=== PATIENT | female | born 1990 | race Caucasian/White ===

== ENCOUNTER 2019-08-22 23:19 | Inpatient (IN) | payer BC ==
[~2019-08-22 23:19] MED LIST: Bupivacaine PF 0.5% 30 ML VIAL ONE
[2019-08-22 23:53] VITALS: BMI 34.7
[2019-08-23] MEDS ORDERED: Diphenoxylate HCl/Atropine Tablet PO PRN ×2 (00:20)
[2019-08-23] MEDS ORDERED: Misoprostol 200 MCG TAB PR PRN (00:20)
[2019-08-23] MEDS ORDERED: HYDROcodone/Acetaminophen 5/325 mg Tablet PO PRN ×3 (00:20→16:26)
[2019-08-23] MEDS ORDERED: Acetaminophen 500 MG TAB PO PRN (00:20)
[2019-08-23] MEDS ORDERED: Zolpidem Tartrate 5 MG TAB PO PRN ×2 (00:20→16:26)
[2019-08-23] MEDS ORDERED: NS / Oxytocin 40 units/1000ml 1,000 ML IV PRN (00:20)
[2019-08-23] MEDS ORDERED: Carboprost 250 MCG/ML AMP IM PRN (00:20)
[2019-08-23] MEDS ORDERED: Ondansetron PF 4 MG/2 ML Vial IVP PRN ×3 (00:20→16:26)
[2019-08-23] MEDS ORDERED: Methylergonovine 0.2 MG/ML VIAL IM PRN ×2 (00:20→16:26)
[2019-08-23] MEDS ORDERED: Lidocaine 1% (PF) 30 ML VIAL SC PRN (00:20)
[2019-08-23] MEDS ORDERED: Ibuprofen 800 MG TAB PO PRN (00:20)
[2019-08-23] MEDS ORDERED: Docusate 100 MG CAP PO PRN (00:20)
[2019-08-23] MEDS ORDERED: Promethazine HCl 25 MG/ML VIAL IM PRN ×3 (00:20→16:26)
[2019-08-23] MEDS ORDERED: Butorphanol Tartrate 1 MG/ML VIAL SLOW IVP PRN (00:20)
[2019-08-23] MEDS ORDERED: hydrALAZINE 20 MG/ML VIAL SLOW IVP PRN ×2 (00:20→16:26)
--- NOTE | 2019-08-23 00:26 | PDOC.LDHP ---
Labor and Delivery H&P Chief complaint: contractions HPI: 29 at 39 and 2/7 weeks presents in early labor. Current gestational age (weeks): 39 Due date: 08/28/19 Grav: 1 Para: 0 Current complications: none Abnormal US findings: No Past Medical History: Bipolar Disorder, Anxiety Current medications: pre-derian vitamins Previous surgical history: none Allergies/Adverse Reactions: Allergies Allergy/AdvReac Type Severity Reaction Status Date / Time duloxetine [From Cymbalta] Allergy Intermediate Verified 08/22/19 23:47 Social history: none - Physical Exam Vital signs reviewed and normal: yes General: NAD Heart: RRR Lungs: CTAB Abdomen: gravid Extremeties: no edema FHT: category 1 - Assessment L&D Assessment: term patient in labor - Plan Plan: admit to L&D, labor augmentation if indicated
[2019-08-23] MEDS: Lactated Ringer's 1,000 ML IV SCH ×2 (01:00→06:41)
[2019-08-23 01:03] LABS: Hemoglobin 13.2 g/dL (12.0-16.0); Mean Corpuscular HGB CONC 35.9 g/dL (32.0-36.0); Mean Corpuscular Hemoglobin 34.7 pg (27.0-31.0); Mean Corpuscular Volume 96.7 fL (78.0-98.0); Mean Platelet Volume 10.4 fL (7.4-10.4); Platelet Count 163 thou/uL (130-400); RBC Distribution Width 11.8 % (11.5-14.5); White Blood Cell (WBC) Count 13.6 thou/uL (4.8-10.8)
[2019-08-23 01:42] LABS: Hep B Surf Ag Non-Reactive S/CO (NonReactive)
[2019-08-23] MEDS ORDERED: Fentanyl 4 mcg/Bup 0.1% Cadd 100 ML ONE (01:45)
[2019-08-23] MEDS ORDERED: Acetaminophen 325 MG TAB PO PRN (02:33)
[2019-08-23] MEDS ORDERED: EPHEDRINE 25 MG/5 ML SYRINGE SLOW IVP PRN (02:33)
[2019-08-23] MEDS ORDERED: diphenhydrAMINE 50 MG/ML VIAL IVP PRN (02:33)
[2019-08-23] MEDS ORDERED: Lactated Ringer's 500 ML IV PRN (02:33)
[2019-08-23] MEDS ORDERED: Naloxone HCl 0.4 mg/ml Vial IVP PRN ×2 (02:33)
[2019-08-23] MEDS ORDERED: Fentanyl 4 mcg/Bupivacaine 0.1% Cassette 100 ML EPIDURAL SCH (02:45)
[2019-08-23] MEDS ORDERED: Communication Order-Pharmacy FS SCH (02:45)
[2019-08-23 04:24] LABS: Syphilis Antibody Nonreactive (Nonreactive); Syphilis Antibody Index 0.03 S/CO (<1.00 Non-Reactive)
[2019-08-23] MEDS ORDERED: NS / Oxytocin 40 units/1000ml 1,000 ML ONE (07:27)
[2019-08-23] MEDS ORDERED: Lidocaine 1% (PF) 30 ML VIAL ONE (07:27)
[2019-08-23] MEDS ORDERED: NS w/ Oxytocin 10 units 500 ML IV SCH ×2 (07:30)
[2019-08-23] MEDS ORDERED: FLU VACC QS2019-20(6MOS UP)/PF 60 MCG/0.5 ML SYRINGE IM ONE (09:00)
[2019-08-23] MEDS ORDERED: diphenhydrAMINE 25 MG CAP PO PRN (16:26)
[2019-08-23] MEDS ORDERED: Milk Of Magnesia 30 ML UDCUP PO PRN (16:26)
[2019-08-23] MEDS ORDERED: Lanolin Ointment 7 GM TUBE TOP PRN (16:26)
[2019-08-23] MEDS ORDERED: Misoprostol 200 MCG TAB VAG PRN (16:26)
[2019-08-23] MEDS ORDERED: Preparation H Ointment 28 GM TUBE PR PRN (16:26)
[2019-08-23] MEDS ORDERED: Bisacodyl 10 MG SUPP PR PRN (16:26)
[2019-08-23] MEDS ORDERED: Benzocaine-Menthol 82.5 ML CAN TOP PRN (16:26)
[2019-08-23] MEDS ORDERED: NS / Oxytocin 40 units/1000ml 1,000 ML IV SCH (16:26)
[2019-08-23] MEDS: Ferrous Sulfate 325 MG TAB PO SCH (17:02)
[2019-08-23] MEDS: Ibuprofen 800 MG TAB PO SCH (21:40)
[2019-08-23] MEDS: Docusate Calcium (SURFAK) 240 MG CAP PO SCH (21:40)
[2019-08-24] MEDS: Ibuprofen 800 MG TAB PO SCH ×3 (06:19→22:06)
[2019-08-24 07:16] LABS: Hemoglobin 13.2 g/dL (12.0-16.0); Mean Corpuscular HGB CONC 35.2 g/dL (32.0-36.0); Mean Corpuscular Hemoglobin 34.1 pg (27.0-31.0); Mean Platelet Volume 10.7 fL (7.4-10.4); Platelet Count 165 thou/uL (130-400); RBC Distribution Width 11.7 % (11.5-14.5); Red Blood Cell (RBC) Count 3.86 mill/uL (4.20-5.40)
[2019-08-24] MEDS: Ferrous Sulfate 325 MG TAB PO SCH ×2 (08:59→16:24)
[2019-08-24] MEDS ORDERED: Adacel (T-DAP) 0.5 ML SYRINGE IM ONE (09:00)
[2019-08-24] MEDS ORDERED: Measles/Mumps/Rubella 10 MCG/0.5 ML VIAL SC ONE (09:00)
[2019-08-24] MEDS ORDERED: Varicella virus, LIVE 0.5 ML VIAL SC ONE (09:00)
[2019-08-24] MEDS: Prenatal Vitamin 1 TAB PO SCH (09:45)
[2019-08-24] MEDS: Docusate Calcium (SURFAK) 240 MG CAP PO SCH ×2 (09:45→22:07)
--- NOTE | 2019-08-24 16:28 | PDOC.PP ---
Post Progress Note Post Day #: 1 PO intake tolerated: yes Flatus: yes Ambulation: yes Vital Signs (12 hours) Temp Pulse Resp BP Pulse Ox 08/24/19 12:19 98.2 F 69 16 132/62 98 08/24/19 09:23 98.2 F 69 14 107/66 97 08/24/19 08:15 97 Weight Weight 190 lb - Physical Examination General: NAD Cardiovascular: no m/r/g, RRR Respiratory: clear to auscultation bilaterally, non-labored breathing Abdominal: + bowel sounds, lochia, no distention, appropriately TTP Extremities: negative homans (B) Neurological: no gross focal deficits Psychiatric: A&Ox3, normal affect (DC home planned tomorrow) Result Diagrams: 08/24/19 07:03 Additional Labs: Post Labs Blood Type O POSITIVE 08/23/19 01:56 Hep Bs Antigen Non-Reactive S/CO (NonReactive) 08/23/19 00:53
[2019-08-24] MEDS: HYDROcodone/Acetaminophen 5/325 mg Tablet PO PRN (22:07)
--- NOTE | 2019-08-25 02:42 | DN ---
DATE OF PROCEDURE: 08/23/2019 TIME: 0905, Central Standard time. PREOPERATIVE DIAGNOSIS: Intrauterine at 39 weeks with a term spontaneous onset of labor. POSTOPERATIVE DIAGNOSIS: Intrauterine at 39 weeks with a term spontaneous onset of labor. PROCEDURES: Spontaneous vaginal delivery over a second-degree episiotomy for what was believed to be an occiput posterior presentation and that was confirmed at . FINDINGS: Viable male infant weighing 3634 g or 8 pounds 0 ounces, Apgars 9 and 9, and a straight occiput posterior presentation. ESTIMATED BLOOD LOSS: 200 qBL. COMPLICATIONS: None. PROCEDURE IN DETAIL: The patient presented to [facility] where she was admitted to the labor and delivery service. The patient underwent a normal and uneventful labor with normal cervical dilatation until she was found to be completely dilated. She was then allowed to push and was able to bring the baby down and delivered the baby in a vertex presentation without difficulties. Once the head delivered in occiput anterior position, the shoulders followed spontaneously along with the rest of the baby's body. Once out the baby's mouth and nose were bulb suctioned. The cord was clamped and cut and baby was handed to waiting attendants. Cord blood was collected. Gentle fundal massage was performed and the placenta delivered intact without problems. Hemostasis was assured. Quantitative blood loss was calculated. Inspection of the cervix, vaginal vault, and perineum did not reveal any lacerations needing suturing. Once again, hemostasis was within normal limits and the patient was allowed to recover in the labor and delivery room. Baby went to nursery. Job ID: [id number]
[2019-08-25] MEDS: Ibuprofen 800 MG TAB PO SCH ×3 (06:15→14:26)
[2019-08-25 08:34] VITALS: BP 111/63; TEMP 98.5
[2019-08-25] MEDS: Ferrous Sulfate 325 MG TAB PO SCH (09:28)
[2019-08-25] MEDS: Docusate Calcium (SURFAK) 240 MG CAP PO SCH (11:45)
[2019-08-25] MEDS: Prenatal Vitamin 1 TAB PO SCH (11:45)
[2019-08-25] MEDS: HYDROcodone/Acetaminophen 5/325 mg Tablet PO PRN (11:49)
== END 2019-08-25 16:00 | disposition home or self-care (01) | DRG 807 ==
LOC: L&D/OP 23:19 → L&D 08-23 00:26 → 3SW 08-23 13:49
PROVIDERS: ADMIT Obstetrics & Gynecology; ATTEND Obstetrics & Gynecology
PROC: 10E0XZZ Delivery of Products of Conception, External Approach (ICD-10-PCS; principal; 2019-08-24)
PROC: 0W8NXZZ Division of Female Perineum, External Approach (ICD-10-PCS; 2019-08-24)
DX: O99.344 Other mental disorders complicating childbirth (principal); Z37.0 Single live birth; F29 Unspecified psychosis not due to a substance or known physiological condition; Z3A.39 39 weeks gestation of pregnancy; F31.9 Bipolar disorder, unspecified; F41.9 Anxiety disorder, unspecified
CPT/HCPCS: 36415; 85027; 86780; 86850; 86900; 86901; 87340; J2001; S0020